=== PATIENT | male | born 1975 | race Hispanic/Latino ===

== ENCOUNTER 2018-07-08 18:15 | Inpatient (IN) | payer OTHER ==
[2018-07-08 19:05] LABS: Absolute Lymphocytes (CBC) 2.3 K/uL (0.7-4.9); Absolute Monocytes 0.5 K/uL (0.1-1.3); Absolute Neutrophil 5.6 K/uL (1.8-8.0); Basophils % 0.6 % (0-1.3); Eosinophils % 0.3 % (0-4.4); Lymphocytes % 27.5 % (15.3-44.8); MPV 7.3 fL (7.6-11.3); Monocytes % 5.4 % (3.3-12.3); RBC Red Blood Cell Count 4.59 M/uL (4.33-5.43)
[2018-07-08 19:10] LABS: ALT/SGPT 32 U/L (12-78); AST/SGOT 27 U/L (15-37); Albumin 4.2 g/dL (3.4-5.0); Alkaline Phosphatase 135 U/L (45-117); BUN Blood Urea Nitrogen 3 mg/dL (7-18); Bicarbonate 25 mmol/L (21-32); Bilirubin Direct 0.2 mg/dL (0-0.2); Bilirubin Total 0.4 mg/dL (0.2-1.0); Glucose Level 108 mg/dL (74-106); Lipase 725 U/L (73-393); Potassium 3.6 mmol/L (3.5-5.1); Protein, Total 8.6 g/dL (6.4-8.2); Sodium Level 129 mmol/L (136-145)
[2018-07-08] MEDS ORDERED: ONDANSETRON 4 MG/2 ML VIAL ONE (19:23)
[2018-07-08] MEDS ORDERED: MEPERIDINE HCL 50 MG/ML AMP ONE (19:23)
[2018-07-08] MEDS ORDERED: NA CHLORIDE 0.9% 1,000 ML ONE (19:24)
[2018-07-08 20:04] LABS: Urine Blood TRACE (NEG); Urine Glucose NEGATIVE (NEG); Urine Protein NEGATIVE (NEG); Urine Specific Gravity <1.005 (1.005-1.030); Urine pH 6.5 (5.0-7.0)
--- NOTE | 2018-07-08 20:32 | RAD REPORT ---
EXAM DESCRIPTION: CTAbdomen Pelvis W Contrast - 07/08/2018 8:12 pm CLINICAL HISTORY: Abdominal pain. iv only. Recent appendectomy;Abd pain COMPARISON: No comparisons TECHNIQUE: Biphasic CT imaging of the abdomen and pelvis was performed with 100 ml non-ionic IV cont rast. All CT scans are performed using dose optimization technique as appropriate and may include automated exposure control or mA/KV adjustment according to patient size. FINDINGS: The lung bases are clear. Mild fatty liver. No focal liver lesion or biliary dilatation. The spleen, pancreas, adrenal glands a nd kidneys are within normal limits. 19 mm cyst is present in the left kidney. No bowel obstruction, free air, free fluid or abscess. Appendectomy noted. No evidence of significa nt lymphadenopathy. No suspicious bony findings. IMPRESSION: No acute intra-abdominal or pelvic finding. Fatty liver.
[2018-07-08] MEDS ORDERED: MORPHINE 2 MG/ML SYR ONE (22:48)
[2018-07-08] MEDS ORDERED: MORPHINE 4 MG/ML SYR ONE (22:49)
--- NOTE | 2018-07-08 22:55 | ER ---
Nurse's Notes [facility] Name: Malu Sargent Jr Age: 43 yrs Sex: Male : 1975 Arrival Date: 07/08/2018 Time: 18:24 Bed 6 Private MD: Diagnosis: Abdominal and pelvic pain;Intractable abdominal pain;Tachycardia, unspecified Presentation: 07/08 18:16 Presenting complaint: EMS states: LLQ pain x 2 days and pain with urination. Reports sv having an appendectomy 2 weeks ago. BP 135/89 HR-140s and went down to 120s after Morphine 5 mg IM given. Transition of care: patient was not received from another setting of care. Onset of symptoms was July 06, 2018. Risk Assessment: Do you want to hurt yourself or someone else? Patient reports no desire to harm self or others. Initial Sepsis Screen: Does the patient meet any 2 criteria? No. Patient's initial sepsis screen is negative. Does the patient have a suspected source of infection? No. Patient's initial sepsis screen is negative. Care prior to arrival: Medication(s) given: Morphine 5 mg IM. 18:16 Method Of Arrival: EMS: [facility] sv 18:16 Acuity: HOA 3 sv Triage Assessment: 18:20 General: Appears uncomfortable, well developed, Behavior is cooperative, appropriate sv for age. Pain: Complains of pain in left lower quadrant Pain currently is 10 out of 10 on a pain scale. Pain began 2-3 days ago. Is continuous, Noted to be grimacing, resistant to movement. Neuro: Level of Consciousness is awake, alert, obeys commands, Oriented to person, place, time, situation, Moves all extremities. Full function Gait is steady. Respiratory: Respiratory effort is even, unlabored, Respiratory pattern is regular, symmetrical. GI: Reports lower abdominal pain. Derm: Skin is pink, warm \\T\\ dry. Historical: - Allergies: 18:27 No Known Allergies; sv - Home Meds: 18:27 lisinopril 10 mg Oral tab [Active]; propanolol [Active]; sv - PMHx: 18:27 Hypertension; sv - PSHx: 18:27 Appendectomy; sv - Immunization history:: Flu vaccine is not up to date. - Social history:: Smoking status: Patient uses tobacco products, smokes one-half pack cigarettes per day, Patient uses alcohol. - Ebola Screening: : No symptoms or risks identified at this time. Screenin:30 Abuse screen: Denies threats or abuse. Denies injuries from another. Nutritional sv screening: No deficits noted. Tuberculosis screening: No symptoms or risk factors identified. Fall Risk None identified. Assessment: 18:30 Reassessment: Patient appears in no apparent distress at this time. No changes from sv previously documented assessment. 19:15 Reassessment: Pt at CT. ea 20:26 Reassessment: Patient and/or family updated on plan of care and expected duration. Pain ea level reassessed. General: Appears uncomfortable, Behavior is calm, cooperative, appropriate for age. Pain: Complains of pain in suprapubic area and left lower quadrant Pain currently is 10 out of 10 on a pain scale. Quality of pain is described as aching, Pain began 2-3 days ago. Neuro: Level of Consciousness is awake, alert, obeys commands, Oriented to person, place, time, situation. Cardiovascular: Patient's skin is warm and dry. Respiratory: Airway is patent Respiratory effort is even, unlabored, Respiratory pattern is regular, symmetrical, Breath sounds are clear bilaterally. Derm: Skin is dry, Skin is normal, Skin temperature is warm. 20:26 GI: Bowel sounds present X 4 quads. Abd is soft X 4 quads Abd is non tender in ea suprapubic area, left upper quadrant and left lower quadrant. 21:30 Reassessment: Patient states pain decreased, but "it's coming back"; States pain to LLQ lp1 of abdomen; Provider notified. 22:15 Reassessment: Patient and/or family updated on plan of care and expected duration. Pain ea level reassessed. Patient is alert, oriented x 3, equal unlabored respirations, skin warm/dry/pink. 23:30 Reassessment: Patient appears in no apparent distress at this time. Patient is alert, lp1 oriented x 3, equal unlabored respirations, skin warm/dry/pink. Patient aware of pending admission;. 07/09 00:31 Reassessment: Patient and/or family updated on plan of care and expected duration. Pain ea level reassessed. Patient is alert, oriented x 3, equal unlabored respirations, skin warm/dry/pink. Pt taken to fourth floor via wheelchair, pt tolerating well. no s/s of pain or discomfort noted at this time. Vital Signs: 07/08 18:27 BP 152 / 103; Pulse 120; Resp 20; Pulse Ox 97% ; Weight 86.18 kg; Height 5 ft. 8 in. sv (172.72 cm); Pain 10/10; 18:38 BP 134 / 87; Pulse 111; Resp 20; Pulse Ox 95% ; sv 19:00 BP 109 / 79; Pulse 107; Resp 18; Pulse Ox 96% ; sv 20:28 BP 139 / 95; Pulse 118; Resp 19; Pulse Ox 95% on 2 lpm NC; Pain 8/10; ea 21:00 BP 111 / 76; Pulse 105; Resp 13; Pulse Ox 99% on 2 lpm NC; lp1 21:15 BP 105 / 67; Pulse 102; Resp 13; Pulse Ox 98% on 2 lpm NC; lp1 22:00 BP 106 / 73; Pulse 100; Resp 12; Pulse Ox 98% on 2 lpm NC; lp1 22:30 BP 124 / 69; Pulse 102; Resp 14; Pulse Ox 96% on 2 lpm NC; lp1 23:00 BP 120 / 69; Pulse 96; Resp 12; Pulse Ox 96% on 2 lpm NC; lp1 23:30 BP 111 / 59; Pulse 101; Resp 13; Pulse Ox 96% on 2 lpm NC; lp1 07/09 00:00 BP 114 / 67; Pulse 102; Resp 13; Temp 98.1(O); Pulse Ox 95% on 2 lpm NC; lp1 07/08 18:27 Body Mass Index 28.89 (86.18 kg, 172.72 cm) sv ED Course: 07/08 18:16 Arm band placed on Patient placed in an exam room, on a stretcher. sv 18:24 Patient arrived in ED. sv 18:24 Mague Rodriguez, DAMARI is Primary Nurse. sv 18:25 Jarred Mayorga PA is PHCP. jr8 18:25 Tal Morin MD is Attending Physician. jr8 18:26 Triage completed. sv 18:30 Patient has correct armband on for positive identification. Bed in low position. Side sv rails up X2. Pulse ox on. NIBP on. Door closed. Warm blanket given. Head of bed elevated. 18:30 Initial lab(s) drawn, by ED staff, sent to lab. Inserted saline lock: 20 gauge in left sv antecubital area, using aseptic technique. ,using aseptic technique. done by Geo Chowdary RN Blood collected. 19:04 Radiology exam delayed due to lab results not completed at this time. (BUN/Creatinine). nj 19:09 Report given to Dena WETZEL and Nati RN. sv 19:11 Primary Nurse role handed off by Mague Rodriguez RN sv 19:[address] via wheelchair. nj 19:31 Nati Layne, DAMARI is Primary Nurse. ea 20:10 Inserted saline lock: 22 gauge in right antecubital area, using aseptic technique. lp1 Insert[address]. 20:11 CT completed. Patient tolerated procedure well. Patient moved back from CT. nj 20:12 CT Abd/Pelvis - W/Contrast In Process Unspecified. EDMS 22:55 Kelin Giles MD is Hospitalizing Provider. jr8 23:04 Initial lab(s) drawn, by me, sent to lab. lp1 07/09 00:02 No provider procedures requiring assistance completed. Patient admitted, IV remains in lp1 place. Administered Medications: 07/08 20:25 Drug: Demerol 50 mg Route: IVP; Site: right antecubital; ea 21:20 Follow up: Response: Pain is decreased lp1 20:25 Drug: Zofran 4 mg Route: IVP; Site: right antecubital; ea 21:20 Follow up: Response: No adverse reaction lp1 20:26 Drug: NS 0.9% 1000 ml Route: IV; Rate: 1000 ml; Site: right antecubital; ea 21:37 Follow up: IV Status: Completed infusion; IV Intake: 1000ml lp1 22:45 Drug: morphine 5 mg Route: IVP; Site: right antecubital; ea 23:00 Follow up: Response: No adverse reaction; Pain is decreased ea Intake: 21:37 IV: 1000ml; Total: 1000ml. lp1 Outcome: 22:55 Decision to Hospitalize by Provider. jr8 07/09 00:03 Condition: stable lp1 Instructed on the need for admit. 00:10 Admitted to Tele accompanied by tech, via wheelchair, room 401, with chart, Report lp1 called to DAMARI Simon 00:32 Patient left the ED. ea Signatures: Dispatcher [employer] Mague Ornelas RN RN sv Pena, Laura, RN RN lp1 Jarred Mayorga PA PA jr8 Baljinder Armas Elena, RN RN ea
--- NOTE | 2018-07-08 22:56 | EDPHYS ---
Physician Documentation [facility] Name: Malu Sargent Jr Age: 43 yrs Sex: Male : 1975 Arrival Date: 07/08/2018 Time: 18:24 Bed 6 Private MD: ED Physician Tal Morin HPI: 07/08 19:36 This 43 yrs old Male presents to ER via EMS with complaints of Abdominal Pain. jr8 19:36 The patient presents with abdominal pain in the left lower quadrant. Onset: The jr8 symptoms/episode began/occurred acutely, 3 day(s) ago, and became worse and became persistent. The symptoms do not radiate. Associated signs and symptoms: none. The symptoms are described as stabbing. Modifying factors: The symptoms are alleviated by nothing, the symptoms are aggravated by nothing. Severity of pain: At its worst the pain was moderate in the emergency department the pain is unchanged. The patient has not experienced similar symptoms in the past. The patient has been recently seen by a physician:. 2 weeks ago had appendectomy at [facility]. Had been well until about 3 days ago. Started with LLQ pain that is getting worse . Historical: - Allergies: 18:27 No Known Allergies; sv - Home Meds: 18:27 lisinopril 10 mg Oral tab [Active]; propanolol [Active]; sv - PMHx: 18:27 Hypertension; sv - PSHx: 18:27 Appendectomy; sv - Immunization history:: Flu vaccine is not up to date. - Social history:: Smoking status: Patient uses tobacco products, smokes one-half pack cigarettes per day, Patient uses alcohol. - Ebola Screening: : No symptoms or risks identified at this time. ROS: 19:36 Eyes: Negative for injury, pain, redness, and discharge, ENT: Negative for injury, jr8 pain, and discharge, Neck: Negative for injury, pain, and swelling, Cardiovascular: Negative for chest pain, palpitations, and edema, Respiratory: Negative for shortness of breath, cough, wheezing, and pleuritic chest pain, Back: Negative for injury and pain, MS/Extremity: Negative for injury and deformity, Skin: Negative for injury, rash, and discoloration, Neuro: Negative for headache, weakness, numbness, tingling, and seizure. 19:36 Abdomen/GI: Positive for abdominal pain, nausea, Negative for vomiting, diarrhea, constipation, abdominal cramps, abdominal distension, hematemesis, black/tarry stool, rectal pain, rectal bleeding, flatulence. Exam: 19:36 Eyes: Pupils equal round and reactive to light, extra-ocular motions intact. Lids and jr8 lashes normal. Conjunctiva and sclera are non-icteric and not injected. Cornea within normal limits. Periorbital areas with no swelling, redness, or edema. ENT: Nares patent. No nasal discharge, no septal abnormalities noted. Tympanic membranes are normal and external auditory canals are clear. Oropharynx with no redness, swelling, or masses, exudates, or evidence of obstruction, uvula midline. Mucous membranes moist. Neck: Trachea midline, no thyromegaly or masses palpated, and no cervical lymphadenopathy. Supple, full range of motion without nuchal rigidity, or vertebral point tenderness. No Meningismus. Cardiovascular: Regular rate and rhythm with a normal S1 and S2. No gallops, murmurs, or rubs. Normal PMI, no JVD. No pulse deficits. Respiratory: Lungs have equal breath sounds bilaterally, clear to auscultation and percussion. No rales, rhonchi or wheezes noted. No increased work of breathing, no retractions or nasal flaring. Back: No spinal tenderness. No costovertebral tenderness. Full range of motion. Skin: Warm, dry with normal turgor. Normal color with no rashes, no lesions, and no evidence of cellulitis. MS/ Extremity: Pulses equal, no cyanosis. Neurovascular intact. Full, normal range of motion. Neuro: Awake and alert, GCS 15, oriented to person, place, time, and situation. Cranial nerves II-XII grossly intact. Motor strength 5/5 in all extremities. Sensory grossly intact. Cerebellar exam normal. Normal gait. 19:36 Abdomen/GI: Inspection: abdomen appears normal, scar(s), are noted in the , Bowel sounds: active, all quadrants, Palpation: soft, in all quadrants, moderate abdominal tenderness, in the suprapubic area and left lower quadrant, mass, is not appreciated, rebound tenderness, is not appreciated, voluntary guarding, is not appreciated, involuntary guarding, is not appreciated, no appreciated organomegaly, Indicators: McBurney's point is not tender, Fletcher's sign is negative, Liver: tenderness, is not appreciated. Vital Signs: 18:27 BP 152 / 103; Pulse 120; Resp 20; Pulse Ox 97% ; Weight 86.18 kg; Height 5 ft. 8 in. sv (172.72 cm); Pain 10/10; 18:38 BP 134 / 87; Pulse 111; Resp 20; Pulse Ox 95% ; sv 19:00 BP 109 / 79; Pulse 107; Resp 18; Pulse Ox 96% ; sv 20:28 BP 139 / 95; Pulse 118; Resp 19; Pulse Ox 95% on 2 lpm NC; Pain 8/10; ea 21:00 BP 111 / 76; Pulse 105; Resp 13; Pulse Ox 99% on 2 lpm NC; lp1 21:15 BP 105 / 67; Pulse 102; Resp 13; Pulse Ox 98% on 2 lpm NC; lp1 22:00 BP 106 / 73; Pulse 100; Resp 12; Pulse Ox 98% on 2 lpm NC; lp1 22:30 BP 124 / 69; Pulse 102; Resp 14; Pulse Ox 96% on 2 lpm NC; lp1 23:00 BP 120 / 69; Pulse 96; Resp 12; Pulse Ox 96% on 2 lpm NC; lp1 23:30 BP 111 / 59; Pulse 101; Resp 13; Pulse Ox 96% on 2 lpm NC; lp1 07/09 00:00 BP 114 / 67; Pulse 102; Resp 13; Temp 98.1(O); Pulse Ox 95% on 2 lpm NC; lp1 07/08 18:27 Body Mass Index 28.89 (86.18 kg, 172.72 cm) sv MDM: 07/08 18:25 Patient medically screened. jr8 22:54 Data reviewed: vital signs, nurses notes, lab test result(s), radiologic studies, CT jr8 scan, and as a result, I will admit patient. Data interpreted: Pulse oximetry: on room air is 98 %. Interpretation: normal. Counseling: I had a detailed discussion with the patient and/or guardian regarding: the historical points, exam findings, and any diagnostic results supporting the discharge/admit diagnosis, lab results, radiology results, the need for further work-up and treatment in the hospital. Physician consultation: Chriss Ledesma MD was called at 22:54, was contacted at 22:54, regarding admission, to the telemetry unit. consult, patient's condition, and will see patient would like admission per Dr. Kelin Giles MD. 07/08 18:28 Order name: Basic Metabolic Panel; Complete Time: 19:28 sv 07/08 18:28 Order name: CBC with Diff; Complete Time: 19:28 sv 07/08 18:28 Order name: Creatinine for Radiology; Complete Time: 19:28 sv 07/08 18:28 Order name: Hepatic Function; Complete Time: 19:28 sv 07/08 18:28 Order name: Lipase; Complete Time: 19:28 sv 07/08 19:50 Order name: Urine Dipstick--Ancillary (enter results); Complete Time: 20:05 em1 07/08 18:28 Order name: IV Saline Lock; Complete Time: 18:31 sv 07/08 18:51 Order name: CT Abd/Pelvis - W/Contrast; Complete Time: 20:40 jr8 07/08 22:46 Order name: UDS; Complete Time: 23:19 jr8 07/08 22:46 Order name: ETOH Level; Complete Time: 23:35 jr8 07/08 18:28 Order name: Labs collected and sent; Complete Time: 18:31 sv 07/08 18:44 Order name: Cardiac monitoring; Complete Time: 20:58 jr8 Administered Medications: 20:25 Drug: Demerol 50 mg Route: IVP; Site: right antecubital; ea 21:20 Follow up: Response: Pain is decreased lp1 20:25 Drug: Zofran 4 mg Route: IVP; Site: right antecubital; ea 21:20 Follow up: Response: No adverse reaction lp1 20:26 Drug: NS 0.9% 1000 ml Route: IV; Rate: 1000 ml; Site: right antecubital; ea 21:37 Follow up: IV Status: Completed infusion; IV Intake: 1000ml lp1 22:45 Drug: morphine 5 mg Route: IVP; Site: right antecubital; ea 23:00 Follow up: Response: No adverse reaction; Pain is decreased ea Disposition: 07/09 07:43 Co-signature as Attending Physician, Tal Morin MD I agree with the assessment and kdr plan of care. Disposition: 07/08/18 22:55 Hospitalization ordered by Kelin Giles for Observation. Preliminary diagnosis are Abdominal and pelvic pain, Intractable abdominal pain, Tachycardia, unspecified. - Bed requested for Telemetry/MedSurg (observation). - Status is Observation. ea - Condition is Stable. - Problem is new. - Symptoms are unchanged. UTI on Admission? No Signatures: Dispatcher [employer] EDMague Blanco, RN RN Tal Morin MD MD [facility] Jarred Mayorga PA PA jr8 Lore Jenkins RN RN Nati Layne RN RN ea Pena, Laura RN lp1 Corrections: (The following items were deleted from the chart) 07/08 23:26 22:55 Hospitalization Ordered by Kelin Giles MD for Observation. Preliminary cg diagnosis is Abdominal and pelvic pain; Intractable abdominal pain; Tachycardia, unspecified. Bed requested for Telemetry/MedSurg (observation). Status is Observation. Condition is Stable. Problem is new. Symptoms are unchanged. UTI on Admission? No. jr8 07/09 00:32 07/08 23:26 07/08/2018 22:55 Hospitalization Ordered by Kelin Giles MD for ea Observation. Preliminary diagnosis is Abdominal and pelvic pain; Intractable abdominal pain; Tachycardia, unspecified. Bed requested for Telemetry/MedSurg (observation). Status is Observation. Condition is Stable. Problem is new. Symptoms are unchanged. UTI on Admission? No. cg
[2018-07-08] MEDS ORDERED: MORPHINE 2 MG/ML SYR IV PRN (23:16)
[2018-07-08] MEDS ORDERED: ACETAMINOPHEN 500 MG TAB PO PRN (23:16)
[2018-07-08 23:17] LABS: Barbiturates NEGATIVE (NEGATIVE); Benzodiazepines NEGATIVE (NEGATIVE); Cocaine NEGATIVE (NEGATIVE); METHAMPHETAM NEGATIVE (NEGATIVE); Methadone NEGATIVE (NEGATIVE); Opiates POSITIVE (NEGATIVE); Phencyclidine NEGATIVE (NEGATIVE); THC Cannibis NEGATIVE (NEGATIVE)
[2018-07-09] MEDS: NA CHLORIDE 0.9% 1,000 ML IV SCH ×4 (01:29→16:05)
[2018-07-09 02:07] VITALS: O2SAT 100
[2018-07-09] MEDS: ONDANSETRON 4 MG/2 ML VIAL IV PRN (02:20)
[2018-07-09 02:28] VITALS: BMI 28.8
[2018-07-09] MEDS ORDERED: MEPERIDINE HCL 25 MG/0.5 ML IV PRN ×2 (03:56→08:05)
[2018-07-09 04:09] LABS: Absolute Lymphocytes (CBC) 2.3 K/uL (0.7-4.9); Absolute Monocytes 0.6 K/uL (0.1-1.3); Absolute Neutrophil 4.5 K/uL (1.8-8.0); Basophils % 1.3 % (0-1.3); Eosinophils % 1.4 % (0-4.4); Hematocrit 40.4 % (39.6-49.0); Lymphocytes % 30.4 % (15.3-44.8); MPV 7.1 fL (7.6-11.3); Monocytes % 8.5 % (3.3-12.3); RBC Red Blood Cell Count 4.31 M/uL (4.33-5.43)
[2018-07-09] MEDS ORDERED: PIPER/TAZO/NS 3.375gm 3.375 GM/100 ML BAG IVPB SCH ×2 (04:45→09:00)
[2018-07-09 04:53] LABS: ALT/SGPT 29 U/L (12-78); AST/SGOT 23 U/L (15-37); Albumin 3.7 g/dL (3.4-5.0); Alkaline Phosphatase 119 U/L (45-117); BUN Blood Urea Nitrogen 4 mg/dL (7-18); Bicarbonate 24 mmol/L (21-32); Bilirubin Total 0.4 mg/dL (0.2-1.0); Glucose Level 90 mg/dL (74-106); HDL Cholesterol 94 mg/dL (40-60); LDL Cholesterol, Calculated 119 (<130); Lipase 1315 U/L (73-393); Potassium 4.2 mmol/L (3.5-5.1); Protein, Total 7.8 g/dL (6.4-8.2); Sodium Level 135 mmol/L (136-145)
[2018-07-09] MEDS ORDERED: PIPER/TAZO/NS 3.375gm 3.375 GM/100 ML BAG ONE (05:20)
--- NOTE | 2018-07-09 08:01 | P.HP ---
Certification for Inpatient Patient admitted to: Observation With expected LOS: <2 Midnights Patient will require the following post-hospital care: None Practitioner: I am a practitioner with admitting privileges, knowledge of patient current condition, hospital course, and medical plan of care. Services: Services provided to patient in accordance with Admission requirements found in Title 42 Section 412.3 of the Code of Federal Regulations Patient History Date of Service: 07/08/18 Reason for admission: Abdominal pain History of Present Illness: Patient is a 43-year-old gentleman who came into the hospital with abdominal discomfort. States pain is mainly on the left side. Patient recently had an appendectomy. He states this was done at [facility]. Patient apparently had a perforated appendix and required emergency surgery. Patient was kept in the hospital for 4 days afterwards. Patient was discharged a few days ago. Since he has been home he has started drinking. Prior to this he had not had a drink in 1 year according to the patient. He has been drinking heavily for the last 2 days. He came to our ER because of the abdominal pain. The pain was in the left side however, it appears that he has acute pancreatitis. He will be admitted to the hospital for further workup. Allergies No Known Allergies Allergy (Unverified 07/09/18 00:05) Home Medications: Lisinopril [Prinivil*] 10 mg PO DAILY 07/09/18 Pantoprazole [Protonix Tab*] 40 mg PO DAILY 07/09/18 Propranolol [Inderal*] 10 mg PO BEDTIME 07/09/18 - Past Medical/Surgical History Has patient received pneumonia vaccine in the past: No Diabetic: No -: HTN -: appendectomy - Family History Father History Unknown: Yes Medical History: Hypertension - Social History Smoking Status: Current some day smoker Alcohol use: Yes CD- Drugs: Yes Caffeine use: No Place of Residence: Home Review of Systems 10-point ROS is otherwise unremarkable Physical Examination - Vital Signs Temperature: 99.1 F Blood Pressure: 111/66 Pulse: 105 Respirations: 18 Pulse Ox (%): 94 - Physical Exam General: Alert, In no apparent distress, Oriented x3 HEENT: Atraumatic, PERRLA, Mucous membr. moist/pink, EOMI, Sclerae nonicteric Neck: Supple, 2+ carotid pulse no bruit, No LAD, Without JVD or thyroid abnormality Respiratory: Clear to auscultation bilaterally, Normal air movement Cardiovascular: Regular rate/rhythm, Normal S1 S2 Gastrointestinal: Normal bowel sounds, Soft and benign, Non-distended, No guarding, Tenderness, Rebound Musculoskeletal: No clubbing, No swelling, No tenderness Integumentary: No rashes Neurological: Normal gait, Normal speech, Normal strength at 5/5 x4 extr, Normal tone, Sensation intact, Cranial nerves 3-12 intact, Normal affect Lymphatics: No axilla or inguinal lymphadenopathy - Studies Laboratory Data (last 24 hrs) 07/08/18 18:30: Creatinine 0.70 07/08/18 18:30: WBC 8.4, Hgb 14.9, Hct 42.0, Plt Count 618 H 07/08/18 18:30: Sodium 129 L, Potassium 3.6, BUN 3 L, Creatinine 0.70, Glucose 108 H, Total Bilirubin 0.4, AST 27, ALT 32, Alkaline Phosphatase 135 H, Lipase 725 H Assessment & Plan - Problems (Diagnosis) (1) Acute pancreatitis Current Visit: Yes Status: Acute (2) History of alcohol abuse Current Visit: Yes Status: Acute (3) Status post appendectomy Current Visit: Yes Status: Acute - Plan 1. Continue with IV hydration 2. Continue with IV antibiotics 3. Continue with pain control 4. NPO 5. GI consultation if symptoms worsen 6. Serial H&H, and we will monitor CBC, BMP, LFTs and lipase along with electrolytes. 7. Banana bag & anxiolytics 8. GI and DVT prophylaxis Discharge Plan: Home Plan to discharge in: Greater than 2 days - Advance Directives Does patient have a Living Will: No Does patient have a Durable POA for Healthcare: No - Code Status/Comfort Care Code Status Assessed: Yes Code Status: Full Code Critical Care: No Time Spent Managing PTS Care (In Minutes): 50
[2018-07-09] MEDS ORDERED: LORazepam 2 MG/ML VIAL IV ONE (08:02)
[2018-07-09] MEDS ORDERED: LORazepam 2 MG/ML VIAL IV PRN (08:02)
[2018-07-09] MEDS ORDERED: INFLUENZA VACCINE (for 3y+) 0.5 ML DOSE IMVAC ONE (09:00)
[2018-07-09] MEDS ORDERED: MORPHINE 2 MG/ML SYR IV PRN (10:16)
[2018-07-09] MEDS: FOLIC ACID 1 MG, MULTIVITAMINS INJ 10 ML, THIAMINE HCL 100 MG in NA CHLORIDE 0.9% 1,000 ML IV SCH (11:20)
[2018-07-09] MEDS: LISINOPRIL 10 MG TAB PO SCH (11:22)
[2018-07-09] MEDS: PANTOPRAZOLE 40MG TABLET PO SCH (11:23)
--- NOTE | 2018-07-09 15:10 | P.PN ---
Subjective Date of Service: 07/09/18 Chief Complaint: Abdominal pain Patient seen and examined at bedside with RN. Chart reviewed. Case discussed with patient at bedside. Patient states that he has been having a lot of abdominal pain this morning and has been nauseous as well. No fevers noted overnight and patient had no complaints overnight Review of Systems 10-point ROS is otherwise unremarkable Physical Examination - Vital Signs Temperature: 98.7 F Blood Pressure: 135/85 Pulse: 102 Respirations: 18 Pulse Ox (%): 97 - Physical Exam General: Alert, In no apparent distress HEENT: Atraumatic, PERRLA, EOMI Neck: Supple, JVD not distended Respiratory: Clear to auscultation bilaterally, Normal air movement Cardiovascular: Regular rate/rhythm, Normal S1 S2 Gastrointestinal: Normal bowel sounds, Tenderness Musculoskeletal: No tenderness Integumentary: No rashes Neurological: Normal speech, Normal tone, Normal affect Lymphatics: No axilla or inguinal lymphadenopathy - Studies Laboratory Data (last 24 hrs) 07/09/18 03:36: Sodium 135 L, Potassium 4.2, BUN 4 L, Creatinine 0.70, Glucose 90, Total Bilirubin 0.4, AST 23, ALT 29, Alkaline Phosphatase 119 H, Triglycerides 76, Cholesterol 228 H, HDL Cholesterol 94 H, Cholesterol/HDL Ratio 2.43, Lipase 1315 H 07/09/18 03:36: WBC 7.6, Hgb 13.9, Hct 40.4, Plt Count 527 H 07/08/18 18:30: Creatinine 0.70 07/08/18 18:30: WBC 8.4, Hgb 14.9, Hct 42.0, Plt Count 618 H 07/08/18 18:30: Sodium 129 L, Potassium 3.6, BUN 3 L, Creatinine 0.70, Glucose 108 H, Total Bilirubin 0.4, AST 27, ALT 32, Alkaline Phosphatase 135 H, Lipase 725 H Medications List Reviewed: Yes Assessment And Plan - Current Problems (Diagnosis) (1) Acute pancreatitis Onset Date: 07/09/18 Current Visit: Yes Status: Acute Plan: Acute Alcohol induced Pancreatitis -lipase this morning is elevated. -abdominal CT negative at this time -patient still complaining of having abdominal pain physical exam consistent with left lower quadrant tenderness -continue with NPO except p.o. meds, IV fluids at this time Qualifiers: Pancreatitis type: alcohol induced Acute pancreatitis complication: no infection or necrosis Qualified Code(s): K85.20 - Alcohol induced acute pancreatitis without necrosis or infection (2) History of alcohol abuse Onset Date: 07/09/18 Current Visit: Yes Status: Chronic (3) Status post appendectomy Onset Date: 07/09/18 Current Visit: Yes Status: Chronic Discharge Plan: Home Plan to discharge in: 48 Hours - Code Status/Comfort Care Code Status Assessed: Yes Critical Care: No
[2018-07-09] MEDS: TRAMADOL HCL 50 MG TAB PO PRN ×2 (16:27→22:12)
[2018-07-09] MEDS ORDERED: PROPRANOLOL HCL 10 MG TAB PO SCH (21:00)
[2018-07-10] MEDS ORDERED: MORPHINE 4 MG/ML SYR IV PRN (00:31)
[2018-07-10] MEDS: NA CHLORIDE 0.9% 1,000 ML IV SCH ×2 (00:56→08:02)
[2018-07-10] MEDS: ONDANSETRON 4 MG/2 ML VIAL IV PRN (00:59)
[2018-07-10] MEDS: PANTOPRAZOLE 40MG TABLET PO SCH (08:07)
[2018-07-10] MEDS: TRAMADOL HCL 50 MG TAB PO PRN (08:07)
[2018-07-10] MEDS: LISINOPRIL 10 MG TAB PO SCH (08:07)
[2018-07-10] MEDS: FOLIC ACID 1 MG, MULTIVITAMINS INJ 10 ML, THIAMINE HCL 100 MG in NA CHLORIDE 0.9% 1,000 ML IV SCH (11:08)
[2018-07-10 12:00] VITALS: BP 105/63; TEMP 98
--- NOTE | 2018-07-10 16:55 | P.DS ---
Admission Date: 07/09/18 Discharge Date: 07/10/18 Disposition: ROUTINE DISCHARGE Discharge Condition: GOOD Reason for Admission: Abdominal pain - Problems (1) Acute pancreatitis Onset Date: 07/09/18 Status: Acute Qualifiers: Pancreatitis type: alcohol induced Acute pancreatitis complication: no infection or necrosis Qualified Code(s): K85.20 - Alcohol induced acute pancreatitis without necrosis or infection (2) History of alcohol abuse Onset Date: 07/09/18 Status: Chronic (3) Status post appendectomy Onset Date: 07/09/18 Status: Chronic Brief History of Present Illness: Patient is a 43-year-old gentleman who came into the hospital with abdominal discomfort. States pain is mainly on the left side. Patient recently had an appendectomy. He states this was done at [facility]. Patient apparently had a perforated appendix and required emergency surgery. Patient was kept in the hospital for 4 days afterwards. Patient was discharged a few days ago. Since he has been home he has started drinking. Prior to this he had not had a drink in 1 year according to the patient. He has been drinking heavily for the last 2 days. He came to our ER because of the abdominal pain. The pain was in the left side however, it appears that he has acute pancreatitis. He will be admitted to the hospital for further workup. Hospital Course: This is a 43-year-old male with significant past medical history who was admitted to the hospital for acute pancreatitis. Patient was started on IV fluids here in the hospital. Patient's lipase initially was 713 which increased to 1300 on day 2. Patient's abdominal CT however remained negative without evidence pancreatitis. Patient was kept on IV fluids NPO and pain medications. After 24 hr. Patient had marked resolution in his symptoms and thus his diet was advanced to a clear liquid diet and patient was switched over to p.o. pain medication. Patient was doing well and was ambulating okay and pain was controlled. Patient then was asked to advance his diet to regular diet and he tolerated well as well. Patient then was discharged home under stable condition was asked to follow up with [facility] Vital Signs/Physical Exam: Temp Pulse Resp BP Pulse Ox 98 F 74 18 105/63 96 07/10/18 12:00 07/10/18 12:00 07/10/18 12:00 07/10/18 12:00 07/10/18 12:00 General: Alert, In no apparent distress HEENT: Atraumatic, PERRLA, EOMI Neck: Supple, JVD not distended Respiratory: Clear to auscultation bilaterally, Normal air movement Cardiovascular: Regular rate/rhythm, Normal S1 S2 Gastrointestinal: Normal bowel sounds, No tenderness Musculoskeletal: No tenderness Integumentary: No rashes Neurological: Normal speech, Normal tone, Normal affect Lymphatics: No axilla or inguinal lymphadenopathy Laboratory Data at Discharge: WBC 7.6 K/uL (4.3-10.9) 07/09/18 03:36 Hgb 13.9 g/dL (13.6-17.9) 07/09/18 03:36 Hct 40.4 % (39.6-49.0) 07/09/18 03:36 Plt Count 527 K/uL (152-406) H 07/09/18 03:36 Sodium 135 mmol/L (136-145) L 07/09/18 03:36 Potassium 4.2 mmol/L (3.5-5.1) 07/09/18 03:36 BUN 4 mg/dL (7-18) L 07/09/18 03:36 Creatinine 0.70 mg/dL (0.55-1.3) 07/09/18 03:36 Glucose 90 mg/dL (74-106) 07/09/18 03:36 Total Bilirubin 0.4 mg/dL (0.2-1.0) 07/09/18 03:36 AST 23 U/L (15-37) 07/09/18 03:36 ALT 29 U/L (12-78) 07/09/18 03:36 Alkaline Phosphatase 119 U/L (45-117) H 07/09/18 03:36 Triglycerides 76 mg/dL (<150) 07/09/18 03:36 Cholesterol 228 mg/dL (<200) H 07/09/18 03:36 HDL Cholesterol 94 mg/dL (40-60) H 07/09/18 03:36 Cholesterol/HDL Ratio 2.43 07/09/18 03:36 Lipase 1315 U/L (73-393) H 07/09/18 03:36 Home Medications: Lisinopril [Prinivil*] 10 mg PO DAILY 07/09/18 Pantoprazole [Protonix Tab*] 40 mg PO DAILY 07/09/18 Propranolol [Inderal*] 10 mg PO BEDTIME 07/09/18 Diet: Regular Activity: Ad [place] Followup: Kwame Montez MD [ACTIVE - CAN ADMIT] - 1 Week Hector Hill MD [Primary Care Provider] -
== END 2018-07-10 14:28 | disposition home or self-care (01) | DRG 440 ==
LOC: ER 18:15 → ERHOLD 22:55 → 4TH 07-09 00:12 → OBSVTOIN 07-09 08:54
PROVIDERS: ADMIT Hospitalist; ATTEND Family Medicine
DX: K85.20 Alcohol induced acute pancreatitis without necrosis or infection (principal); I10 Essential (primary) hypertension; F17.210 Nicotine dependence, cigarettes, uncomplicated; F10.10 Alcohol abuse, uncomplicated
CPT/HCPCS: 36415; 74177; 80048; 80053; 80061; 80076; 80307; 80320; 81003; 83690; 85025; 96361; 96374; 96375; 99285; J2175; J2270; J2405; J2543; J3411; J7030; Q9967

== ENCOUNTER 2018-12-07 06:28 | Emergency (ER) | payer OTHER ==
--- OUTSIDE RECORDS SUMMARY | 2018-12-07 06:30 | XMS REPORT ---
:1975 [facility] Address [address] [place] [address] Dr. Caban [address] [place] [id number] Care Team Providers Name Role Phone Unavailable Unavailable Unavailable Problems This patient has no known problems. Allergies, Adverse Reactions, Alerts This patient has no known allergies or adverse reactions. Medications This patient has no known medications.
--- NOTE | 2018-12-07 07:21 | RAD REPORT ---
EXAM DESCRIPTION: RAD - Chest Single View - 12/07/2018 7:09 am CLINICAL HISTORY: Chest pain COMPARISON: None. TECHNIQUE: AP portable chest image was obtained 0706 hours . FINDINGS: Lungs are clear. Heart and vasculature are normal. No measurable pleural effusion and no p neumothorax. No acute bony abnormality seen. No acute aortic findings suspected. IMPRESSION: No acute cardiopulmonary process.
--- NOTE | 2018-12-07 07:50 | RAD REPORT ---
EXAM DESCRIPTION: CT - Head Brain Wo Cont - 12/07/2018 7:33 am CLINICAL HISTORY: Dizziness, left upper extremity numbness and tingling, headache COMPARISON: None. TECHNIQUE: Axial 5 mm thick images of the head were obtained without IV contrast. All CT scans are performed using dose optimization technique as appropriate and may include automated exposure control or mA/KV adjustment according to patient size. FINDINGS: No intracranial hemorrhage, mass, edema or shift of mid-line structures. No acute infarcti on changes seen. No abnormal extra-axial fluid collections. Ventricles are normal. 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 Dense calcifications of the pineal region are seen . Choroid plexus calcifications also present. Mastoid air cells and visualized portions of the paranasal sinuses are clear. No acute bony findings. IMPRESSION: Negative non-contrast CT head examination for acute or significant finding.
[2018-12-07 07:51] LABS: BUN Blood Urea Nitrogen 9 mg/dL (7-18); Bicarbonate 25 mmol/L (21-32); Glucose Level 108 mg/dL (74-106); Magnesium 2.3 mg/dL (1.8-2.4); Potassium 4.2 mmol/L (3.5-5.1); Sodium Level 138 mmol/L (136-145); Thyroid Stimulating Hormone 0.697 uIU/mL (0.360-3.740); Troponin (Emerg Dept Use Only) < 0.02 ng/mL (0.0-0.045)
[2018-12-07 07:54] LABS: Absolute Lymphocytes (CBC) 1.7 K/uL (0.7-4.9); Absolute Monocytes 0.4 K/uL (0.1-1.3); Absolute Neutrophil 6.6 K/uL (1.8-8.0); Basophils % 1.3 % (0-1.3); Eosinophils % 1.5 % (0-4.4); Hematocrit 42.2 % (39.6-49.0); Lymphocytes % 19.1 % (15.3-44.8); MPV 8.7 fL (7.6-11.3); Monocytes % 4.7 % (3.3-12.3); RBC Red Blood Cell Count 4.58 M/uL (4.33-5.43)
--- NOTE | 2018-12-07 08:11 | EDPHYS ---
Physician Documentation [facility] Name: Malu Sargent Jr Age: 43 yrs Sex: Male : 1975 Arrival Date: 12/07/2018 Time: 06:31 Bed 6 Private MD: Hector Hill ED Physician Gonzales Barbosa HPI: 12/07 07:04 This 43 yrs old Male presents to ER via Ambulatory with complaints of jr8 Dizziness, Numbness Of Arm, Numbness Of Hand, Shoulder Pain. 07:04 The patient presents with dizziness. Onset: The symptoms/episode began/occurred jr8 gradually, 1 week(s) ago. Context: occurred at home, occurred while the patient was at rest, just prior to the episode the patient experienced no apparent symptoms. Modifying factors: The symptoms are alleviated by nothing, the symptoms are aggravated by movement of head. Associated signs and symptoms: Pertinent positives: numbness. Severity of symptoms: At their worst the symptoms were moderate. Patient's baseline: Neuro: alert and fully oriented, Motor: no deficits, Ambulation: walks without assistance, Speech: normal. The patient has not experienced similar symptoms in the past. The patient has not recently seen a physician. Patient stated that he feels like his heart is fast and pounding. Stated that he has had intermittent dizziness episodes and numbness to left hand and arm . Historical: - Allergies: 06:46 No Known Allergies; bb - Home Meds: 06:46 lisinopril 10 mg Oral tab [Active]; PROPANOLOL [Active]; acid reflux medication bb [Active]; - PMHx: 06:46 Hypertension; acid reflux; bb - PSHx: 06:46 Appendectomy; bb - Immunization history:: Adult Immunizations up to date. - Social history:: Smoking status: Patient/guardian denies using tobacco, Patient/guardian denies using alcohol, but has a distant history of alcohol abuse. - Ebola Screening: : No symptoms or risks identified at this time. ROS: 07:04 Constitutional: Negative for fever, chills, and weight loss. jr8 07:04 Cardiovascular: Positive for palpitations, Negative for chest pain, edema, orthopnea, paroxysmal nocturnal dyspnea. 07:04 Neuro: Positive for dizziness, numbness, Negative for altered mental status, gait disturbance, headache, hearing loss, loss of consciousness, seizure activity, speech changes, syncope, near syncope, tingling, tinnitus, tremor, visual changes, weakness. 07:04 All other systems are negative. Exam: 07:04 Eyes: Pupils equal round and reactive to light, extra-ocular motions intact. Lids and jr8 lashes normal. Conjunctiva and sclera are non-icteric and not injected. Cornea within normal limits. Periorbital areas with no swelling, redness, or edema. ENT: Nares patent. No nasal discharge, no septal abnormalities noted. Tympanic membranes are normal and external auditory canals are clear. Oropharynx with no redness, swelling, or masses, exudates, or evidence of obstruction, uvula midline. Mucous membranes moist. Neck: Trachea midline, no thyromegaly or masses palpated, and no cervical lymphadenopathy. Supple, full range of motion without nuchal rigidity, or vertebral point tenderness. No Meningismus. Cardiovascular: Regular rate and rhythm with a normal S1 and S2. No gallops, murmurs, or rubs. Normal PMI, no JVD. No pulse deficits. Respiratory: Lungs have equal breath sounds bilaterally, clear to auscultation and percussion. No rales, rhonchi or wheezes noted. No increased work of breathing, no retractions or nasal flaring. Abdomen/GI: Soft, non-tender, with normal bowel sounds. No distension or tympany. No guarding or rebound. No evidence of tenderness throughout. Back: No spinal tenderness. No costovertebral tenderness. Full range of motion. Skin: Warm, dry with normal turgor. Normal color with no rashes, no lesions, and no evidence of cellulitis. MS/ Extremity: Pulses equal, no cyanosis. Neurovascular intact. Full, normal range of motion. 07:04 Neuro: Orientation: to person, place, time \T\ situation. Mentation: is normal, Memory: is normal, immediate memory is intact, recent memory is intact, remote memory is intact, Cranial nerves: CN I not tested, CN II- XII are normal as tested, visual coffman are intact. extraocular movements are intact, Facial palsy and sensory deficits are absent. Nystagmus is absent. Speech is clear and appropriate. Tongue strength is normal, Cerebellar function: normal finger to nose testing, heel to velasco testing is normal, Motor: moves all fours, strength is 5/5 in all extremities, Sensation: is normal, Gait: not tested. seizure activity, is not displayed by the patient, Abnormal movements: there are no abnormal movements. 08:09 ECG was reviewed by the Attending Physician. jr8 Vital Signs: 06:46 BP 118 / 78; Pulse 66; Resp 16 S; Temp 97.2(O); Pulse Ox 99% on R/A; Weight 86.18 kg bb (R); Height 5 ft. 7 in. (170.18 cm) (R); Pain 0/10; 07:12 BP 105 / 72; Pulse 63; Resp 18; Pulse Ox 100% on R/A; hj 07:43 BP 102 / 67; Pulse 60; Resp 18; Pulse Ox 100% on R/A; hj 08:05 BP 108 / 79; Pulse 62; Resp 18; Pulse Ox 100% on R/A; hj 06:46 Body Mass Index 29.76 (86.18 kg, 170.18 cm) bb NIH Stroke Scale Scores: 07:04 NIHSS Score: 0 jr8 MDM: 06:36 Patient medically screened. 8 08:09 Data reviewed: vital signs, nurses notes, lab test result(s), EKG, radiologic studies, jr8 CT scan. Data interpreted: Pulse oximetry: on room air is 100 %. Interpretation: normal. Counseling: I had a detailed discussion with the patient and/or guardian regarding: the historical points, exam findings, and any diagnostic results supporting the discharge/admit diagnosis, lab results, radiology results, the need for outpatient follow up, a neurologist, to return to the emergency department if symptoms worsen or persist or if there are any questions or concerns that arise at home. Response to treatment: the patient's symptoms have markedly improved after treatment. 12/07 06:55 Order name: Basic Metabolic Panel; Complete Time: 08:12/07 06:55 Order name: CBC with Diff; Complete Time: 08:12/07 06:55 Order name: CT Head Brain wo Cont; Complete Time: 08:12/07 06:55 Order name: Magnesium; Complete Time: 08:12/07 06:55 Order name: Troponin (emerg Dept Use Only); Complete Time: 08:12/07 06:55 Order name: TSH; Complete Time: 08:02 12/07 06:55 Order name: XRAY Chest (1 view); Complete Time: 07:28 12/07 06:55 Order name: EKG; Complete Time: 06:56 12/07 06:55 Order name: Cardiac monitoring; Complete Time: 07:08 12/07 06:55 Order name: EKG - Nurse/Tech; Complete Time: 07:10 12/07 06:55 Order name: IV Saline Lock; Complete Time: 07:08 12/07 06:55 Order name: Labs collected and sent; Complete Time: 07:08 12/07 06:55 Order name: O2 Per Protocol; Complete Time: 07:12/07 06:55 Order name: O2 Sat Monitoring; Complete Time: 07:08 EC:09 Rate is 61 beats/min. Rhythm is regular, Normal Sinus Rhythm. QRS [place] is Normal. [place] jr8 interval is normal at 118 msec. QRS interval is normal at 88 msec. QT interval is normal at 398 msec. No Q waves. T waves are Normal. No ST changes noted. Clinical impression: Normal ECG and No evidence of ischemia. Interpreted by me. Reviewed by me. Administered Medications: No medications were administered Disposition: 12/07/18 08:10 Discharged to Home. Impression: Paresthesia of skin, Anxiety disorder, unspecified. - Condition is Stable. - Discharge Instructions: Panic Attacks, Paresthesia. - Prescriptions for Hydroxyzine HCl 50 mg Oral Tablet - take 1 tablet by ORAL route every 8 hours As needed; 20 tablet. - Medication Reconciliation Form, Thank You Letter, Antibiotic Education, Prescription Opioid Use, Work release form form. - Follow up: Jerome Dudley MD; When: 5 - 6 days; Reason: Recheck today's complaints, Continuance of care, Re-evaluation by your physician. - Problem is new. - Symptoms have improved. NIH Stroke Scale - NIH Stroke Score Date: 12/07/2018 Time: 07:04 Total Score = 0 1a. Level of Consciousness (LOC) - 0(Alert) 1b. Level of Consciousness (LOC) (Year \T\ Age) - 0(Both) 1c. LOC Commands (Open \T\ Closes Eyes/Supervisor Major Appliance Assembly) - 0(Both) 2. Best Gaze (Lateral Gaze Paresis) - 0(Normal) 3. Visual Field Loss - 0(No visual loss) 4. Facial Palsy - 0(Normal) 5a. Left Arm: Motor (10-second hold) - 0(No drift) 5b. Right Arm: Motor (10-second hold) - 0(No drift) 6a. Left Leg: Motor (5-second hold - always test supine) - 0(No drift) 6b. Right Leg: Motor (5-second hold - always test supine) - 0(No drift) 7. Limb Ataxia (finger/nose \T\ heel/velasco - test with eyes open) - 0(Absent) 8. Sensory Loss (pinprick arms/legs/face) - 0(Normal) 9. Best Language: Aphasia (description/naming/reading) - 0(No aphasia) 10. Dysarthria (speech clarity - read or repeat words) - 0(Normal) 11. Extinction and Inattention (visual/tactile/auditory/spatial/personal) - 0(No abnormality) Initials: cece Signatures: Dispatcher [employer] Veda Benton RN RN Jarred Pickard PA PA jrChriss Larson RN RN hj Corrections: (The following items were deleted from the chart) 08:20 08:10 12/07/2018 08:10 Discharged to Home. Impression: Paresthesia of skin; hj Anxiety disorder, unspecified. Condition is Stable. Forms are Medication Reconciliation Form, Thank You Letter, Antibiotic Education, Prescription Opioid Use. Follow up: Jerome Dudley; When: 5 - 6 days; Reason: Recheck today's complaints, Continuance of care, Re-evaluation by your physician. Problem is new. Symptoms have improved. jr8
--- NOTE | 2018-12-07 08:11 | ER ---
Nurse's Notes [facility] Name: Malu Sargent Jr Age: 43 yrs Sex: Male : 1975 Arrival Date: 12/07/2018 Time: 06:31 Bed 6 Private MD: Hector Hill Diagnosis: Paresthesia of skin;Anxiety disorder, unspecified Presentation: 12/07 06:44 Presenting complaint: Patient states: he has been feeling "weird" for about a week with bb dizziness, left arm tingling and now numbness to his fingers he also states when his arm is hurting he can feel his heart go faster and he is having headaches. Transition of care: patient was not received from another setting of care. Onset of symptoms is unknown. Risk Assessment: Do you want to hurt yourself or someone else? Patient reports no desire to harm self or others. Initial Sepsis Screen: Does the patient meet any 2 criteria? No. Patient's initial sepsis screen is negative. Does the patient have a suspected source of infection? No. Patient's initial sepsis screen is negative. Care prior to arrival: None. 06:44 Method Of Arrival: Ambulatory bb 06:44 Acuity: HOA 3 bb Triage Assessment: 07:04 General: Appears in no apparent distress. Behavior is calm, cooperative. Pain: ak1 Complains of pain in left hand and left arm. EENT: No signs and/or symptoms were reported regarding the EENT system. Neuro: Level of Consciousness is awake, alert, obeys commands, Oriented to person, place, time, situation, Motorcycle Subassembler are equal bilaterally Moves all extremities. Gait is steady, Speech is normal, Facial symmetry appears normal. Cardiovascular: No deficits noted. Respiratory: No deficits noted. GI: No signs and/or symptoms were reported involving the gastrointestinal system. : No signs and/or symptoms were reported regarding the genitourinary system. Derm: No signs and/or symptoms reported regarding the dermatologic system. Musculoskeletal: No signs and/or symptoms reported regarding the musculoskeletal system. Historical: - Allergies: 06:46 No Known Allergies; bb - Home Meds: 06:46 lisinopril 10 mg Oral tab [Active]; PROPANOLOL [Active]; acid reflux medication bb [Active]; - PMHx: 06:46 Hypertension; acid reflux; bb - PSHx: 06:46 Appendectomy; bb - Immunization history:: Adult Immunizations up to date. - Social history:: Smoking status: Patient/guardian denies using tobacco, Patient/guardian denies using alcohol, but has a distant history of alcohol abuse. - Ebola Screening: : No symptoms or risks identified at this time. Screenin:04 Abuse screen: Denies threats or abuse. Denies injuries from another. Nutritional ak1 screening: No deficits noted. Tuberculosis screening: No symptoms or risk factors identified. Fall Risk None identified. Assessment: 07:06 Reassessment: Patient appears in no apparent distress at this time. No changes from ak1 previously documented assessment. see triage assessment. 07:11 General: Appears in no apparent distress. uncomfortable, Behavior is calm, cooperative, hj appropriate for age. Pain: Denies pain. Neuro: Level of Consciousness is awake, alert, obeys commands, Oriented to person, place, time, situation, Appropriate for age Motorcycle Subassembler are equal bilaterally Moves all extremities. Speech is normal, Facial symmetry appears normal, Pupils are PERRLA, Reports dizziness, numbness in left arm and left hand. Cardiovascular: Denies chest pain. Cardiovascular: Heart tones S1 S2 present Capillary refill < 3 seconds Patient's skin is warm and dry. Respiratory: Airway is patent Respiratory effort is even, unlabored, Respiratory pattern is regular, symmetrical. GI: No signs and/or symptoms were reported involving the gastrointestinal system. : No signs and/or symptoms were reported regarding the genitourinary system. EENT: No signs and/or symptoms were reported regarding the EENT system. Derm: No signs and/or symptoms reported regarding the dermatologic system. Musculoskeletal: No signs and/or symptoms reported regarding the musculoskeletal system. 07:44 Reassessment: Patient and/or family updated on plan of care and expected duration. Pain hj level reassessed. Patient is alert, oriented x 3, equal unlabored respirations, skin warm/dry/pink. awaiting results and POC:. 07:50 Reassessment: reports current tingling of the L hands and fingers; provider notifed;. hj 08:10 Reassessment: Patient and/or family updated on plan of care and expected duration. Pain hj level reassessed. Patient is alert, oriented x 3, equal unlabored respirations, skin warm/dry/pink. provider in room for POC:. Vital Signs: 06:46 BP 118 / 78; Pulse 66; Resp 16 S; Temp 97.2(O); Pulse Ox 99% on R/A; Weight 86.18 kg bb (R); Height 5 ft. 7 in. (170.18 cm) (R); Pain 0/10; 07:12 BP 105 / 72; Pulse 63; Resp 18; Pulse Ox 100% on R/A; hj 07:43 BP 102 / 67; Pulse 60; Resp 18; Pulse Ox 100% on R/A; hj 08:05 BP 108 / 79; Pulse 62; Resp 18; Pulse Ox 100% on R/A; hj 06:46 Body Mass Index 29.76 (86.18 kg, 170.18 cm) bb NIH Stroke Scale Scores: 07:04 NIHSS Score: 0 jr8 ED Course: 06:31 Patient arrived in ED. es 06:32 Hector Hill MD is Private Physician. es 06:36 [facility]orga [facility]. jr8 06:36 Gonzales Barbosa MD is Attending Physician. jr8 06:45 Triage completed. bb 06:46 Arm band placed on Patient placed in an exam room, on a stretcher, on pulse oximetry. bb 07:00 Chriss Griffith, RN is Primary Nurse. hj 07:03 Initial lab(s) drawn, by me, held in ED. X-ray(s) taken. Inserted saline lock: 22 gauge ak1 in left antecubital area, using aseptic technique. Blood collected. 07:07 Patient has correct armband on for positive identification. Placed in gown. Bed in low ak1 position. Call light in reach. Side rails up X 1. marketing database coordinator on. Pulse ox on. NIBP on. 07:08 XRAY Chest (1 view) In Process Unspecified. EDMS 07:13 Troponin (emerg Dept Use Only) Sent. hj 07:13 Magnesium Sent. hj 07:13 CBC with Diff Sent. hj 07:13 Basic Metabolic Panel Sent. hj 07:33 CT Head Brain wo Cont In Process Unspecified. EDMS 08:10 Jerome Dudley MD is Referral Physician. jr8 08:19 No provider procedures requiring assistance completed. IV discontinued, intact, hj bleeding controlled, No redness/swelling at site. Pressure dressing applied. Administered Medications: No medications were administered Outcome: 08:10 Discharge ordered by MD. zhao 08:19 Discharged to home ambulatory. 08:19 Condition: stable 08:19 Discharge instructions given to patient, Instructed on discharge instructions, follow up and referral plans. medication usage, Demonstrated understanding of instructions, follow-up care, medications, Prescriptions given X 1. 08:20 Patient left the ED. NIH Stroke Scale - NIH Stroke Score Date: 12/07/2018 Time: 07:04 Total Score = 0 1a. Level of Consciousness (LOC) - 0(Alert) 1b. Level of Consciousness (LOC) (Year \\T\\ Age) - 0(Both) 1c. LOC Commands (Open \\T\\ Closes Eyes/Hosiery Repairer) - 0(Both) 2. Best Gaze (Lateral Gaze Paresis) - 0(Normal) 3. Visual Field Loss - 0(No visual loss) 4. Facial Palsy - 0(Normal) 5a. Left Arm: Motor (10-second hold) - 0(No drift) 5b. Right Arm: Motor (10-second hold) - 0(No drift) 6a. Left Leg: Motor (5-second hold - always test supine) - 0(No drift) 6b. Right Leg: Motor (5-second hold - always test supine) - 0(No drift) 7. Limb Ataxia (finger/nose \\T\\ heel/velasco - test with eyes open) - 0(Absent) 8. Sensory Loss (pinprick arms/legs/face) - 0(Normal) 9. Best Language: Aphasia (description/naming/reading) - 0(No aphasia) 10. Dysarthria (speech clarity - read or repeat words) - 0(Normal) 11. Extinction and Inattention (visual/tactile/auditory/spatial/personal) - 0(No abnormality) Initials: cece Signatures: Dispatcher [employer] Ellie Davidson Brenda RN Jarred Avendano PA PA jrLatosha Butler RN RN ak1 Chriss Griffith RN RN
[2018-12-07 08:36] VITALS: TEMP 97.2
[2018-12-07 08:38] VITALS: O2SAT 100
[2018-12-07 08:41] VITALS: BP 108/79
--- NOTE | 2018-12-07 12:51 | EKG ---
Test Date: 2018-12-07 Test Time: 07:05:39 Artistic Director: SWG MEASUREMENT RESULTS: Intervals: Rate: 61 AK: 118 QRSD: 88 QT: 396 QTc: 398 [place]: P: -5 AK: 118 QRS: 17 T: 39 INTERPRETIVE STATEMENTS: Normal sinus rhythm Normal ECG No previous ECG available for comparison Electronically Signed On 12-07-18 12:50:15 CDT by Marin Zheng
== END 2018-12-07 08:20 | disposition home or self-care (01) ==
LOC: ER 06:28
DX: R20.2 Paresthesia of skin (principal); F41.9 Anxiety disorder, unspecified; I10 Essential (primary) hypertension
CPT/HCPCS: 36415; 70450; 71045; 80048; 83735; 84443; 84484; 85025; 93005; 99284